=== PATIENT | female | born 1980 | race Hispanic/Latino ===

== ENCOUNTER → 2022-01-22 | Day surgery (SDC) | payer BC ==
[~2022-01-22] MED LIST: CLARITIN10 MG PO; LIDOCAINE HCL 2% LOCAL INJ 5 ML SDV VIAL INJ ONE; PROPOFOL IV EMULSION 10 MG/ML 20 ML VIAL ONE
[2022-01-22 13:35] VITALS: BP 116/67
== END | disposition home or self-care (01) ==
LOC: OR 11:45
PROVIDERS: ATTEND Internal Medicine Gastroenterology
DX: K29.70 Gastritis, unspecified, without bleeding (principal); K20.90 Esophagitis, unspecified without bleeding; Z71.3 Dietary counseling and surveillance; Z71.89 Other specified counseling; Z88.1 Allergy status to other antibiotic agents; Z01.812 Encounter for preprocedural laboratory examination; Z20.822 Contact with and (suspected) exposure to COVID-19; Z68.31 Body mass index [BMI] 31.0-31.9, adult
CPT/HCPCS: 0223U; 36415; 43239; C9113; J2001; J2704

== ENCOUNTER → 2022-01-24 | Outpatient (CLI) | payer BC ==
[~2022-01-24] MED LIST changes: -LIDOCAINE HCL 2% LOCAL INJ 5 ML SDV VIAL INJ ONE; -PROPOFOL IV EMULSION 10 MG/ML 20 ML VIAL ONE
== END ==
LOC: US 08:23
PROVIDERS: ATTEND Internal Medicine Gastroenterology
DX: R14.0 Abdominal distension (gaseous) (principal); R14.2 Eructation; R10.10 Upper abdominal pain, unspecified
CPT/HCPCS: 76700